=== PATIENT | female | born 1965 | race Caucasian/White ===

== ENCOUNTER 2016-10-12 15:56 | Observation (INO) ==
--- NOTE | 2016-10-12 16:11 | EKG Report ---
Stationary ECG Study [facility] ER Test Date: 10/12/2016 4:07:49 PM Pat Name: ROD DOSS Department: Room: Gender: F [employer] Tester: Migue Arroyo : 1965 Requested by: Tavo Walton Order Number: [id number] Reading MD: MICHAEL HILLS Intervals [place] Rate: 87 P: 79 MD: 152 QRS: 12 QRSD: 170 T: 151 QT: 408 QTc: 453 Interpretive Statements SINUS RHYTHM LEFT BUNDLE BRANCH BLOCK Electronically Signed On 10-12-16 20:20:58 CDT by MICHAEL HILLS [email or web address]
[2016-10-12] MEDS ORDERED: ASPIRIN 325 MG TABLET PO STA (16:19)
[2016-10-12] MEDS ORDERED: ENOXAPARIN 100 MG/ML SYRINGE SUBCUT STA (16:20)
--- NOTE | 2016-10-12 16:32 | Emergency Department Note ---
Michael Mares Brooke, am scribing for, and in the presence of, Wyatt Leigh MD 16:28 . Lu Mares James D, MD, personally performed the services described in this documentation, ascribed by Diann Rodriguez in my presence, and it is both accurate and complete [id number] . Arrival - Arrival Chief Complaint: Chest Pain Stated Complaint: chest pain ED Nursing Triage Note: Midsternal chest pain onset x 1 week - pt states that she was sent from Dr Thornton office for futher evaluation of chest pain - pt states that she has not been taking her plavix x 1 year Mode of Arrival: Ambulatory Limitations: No Limitations Source: Patient, RN Notes Reviewed Time Seen by Provider: 10/12/16 16:19 - History of Present Illness HPI Narrative: Patient is a 50 year old female who presents to the ED with c/o chest pain that has been ongoing for the past week. Patient says the pain has worsened with time. The pain is located in the center of her chest. She describes the pain as sharp. Patient says the pain is worsened with exertion. She also complains of having shortness of breath, diaphoresis, and nausea with the chest pain. She says she is not currently in pain and states "I feel alright." Patient had a IN in 2013 and had stents placed. She says today's chest pain is different than the pain she had with her previous IN. Patient says she never experienced chest pain and says she had "back pain and a panic attack." Patient says she does have blockages in both sides of her neck. She is a smoker and smokes about a pack of cigarettes a day. Onset (ago): week(s) (1) Date of Last Menstrual Period: hyster Allergies/Adverse Reactions: Allergies Allergy/AdvReac Type Severity Reaction Status Date / Time No Known Allergies Allergy Verified 04/01/16 21:27 Home Medications: Home Medications Medication Instructions Recorded Confirmed Type No Known Home Medications [No 10/12/16 10/12/16 History Known Home Medications] Review of System - Review of System 12 point system: reviewed and no additional remarkable complaints except as stated - Review of System Constitutional: Present: diaphoresis. Absent: fever Respiratory: Absent: respiratory distress Cardiovascular: Present: chest pain Gastrointestinal: Present: nausea Skin: Absent: rash Medical,Surgical,& Family Hx - Medical History Cardio: History of: IN Neurology: No history of: Seizures Gastrointestinal: History of: GI Problems (epigastric pain) - Surgical History Cardiac Surgeries: Sugical HX of: Cardiac Catheterization (3) Abdominal Surgeries: Patient denies: Cholecystectomy - Social History Smoking Status: Current every day smoker Have you smoked in the last 12 months: Yes Time spent discussing smoking cessation with patient: 3 to 10 minutes Frequency of Alcohol Use: Occasionally Type of Drug Use: None Functional capacity: independent ambulation Exam Vital Signs: Vital Signs Temperature 97.8 F 10/12/16 16:05 Pulse Rate 93 H 10/12/16 16:05 Respiratory Rate 20 10/12/16 16:05 Blood Pressure 194/102 10/12/16 16:05 O2 Sat by Pulse Oximetry 97 10/12/16 16:05 GENERAL: This is a well-nourished well-developed white female in no apparent distress. Smells of cigarettes. VITAL SIGNS: Reviewed HEENT: Head is atraumatic and normocephalic. Pupils are equal round react to light. Extraocular movements are intact. Oropharynx is benign with moist mucous membranes. Xanthelasma are present on the upper lids bilaterally. NECK: Neck is soft and supple without tenderness. There are no masses. There is no lymphadenopathy. LUNGS: Lungs are clear to auscultation. Chest rises symmetrically. There is no chest wall tenderness. CV: Heart is regular rate and rhythm without murmurs rubs or gallops. ABDOMEN: Abdomen is soft, nontender to palpation. There are no abdominal abnormal masses palpated. There is no organomegaly. Bowel sounds are present and active. SKIN: Skin is warm and dry. No rash. EXTREMITIES: Patient has full range of motion without tenderness. There is no pedal edema. NEUROLOGIC: Awake alert and oriented 4. Cranial nerves II through XII are grossly intact. Motor is 5 over 5 in all extremities bilaterally. Course - Consultations Consultation #1: Discussed with Dr. Thornton. Patient will be admitted to her service. Initial orders written for her. She will assume care of the patient upon her arrival to the [facility]. Time: 16:42 Results - Labs CBC & BMP: 10/12/16 16:24 10/12/16 16:24 Lab Results: I have reviewed the patients labs Labs: Laboratory Tests 10/12/16 16:24 INR 1.0 Laboratory Tests 10/12/16 16:24 Troponin I 0.018 - EKG EKG results: interpreted by ERMD - Impressions EKG: Normal sinus rhythm with a rate of 87, left bundle branch block, no further interpretation possible. Comparison to EKG of January 2014 is unchanged other than rate. - Diagnostic Findings Procedure: Chest x-ray: image reviewed by me (No infiltrates, no pleural effusions.) Disposition Clinical Impression: Chest pain, Coronary artery disease, Essential hypertension, Hyperlipidemia, Nicotine addiction, Left bundle branch block Case discussed with: patient Disposition: Still a Patient Condition: Stable Time of Disposition: 16:32
[2016-10-12] MEDS ORDERED: ENOXAPARIN 100 MG/ML SYRINGE SUBCUT ONE (16:33)
[2016-10-12] MEDS ORDERED: ASPIRIN 325 MG TABLET ONE (16:33)
[2016-10-12] MEDS ORDERED: METOPROLOL TARTRATE 5 MG/5 ML VIAL IV STA (16:36)
--- NOTE | 2016-10-12 16:36 | XRay Report ---
XR chest 2V Indication: Chest pain. Comparison: Chest x-ray 04/01/2016 Technique: PA and lateral chest x-ray was performed. Findings: The heart is borderline in size to minimally enlarged. Pulmonary vasculature demonstrates no specific abnormality. Hilar structures demonstrate fairly symmetric appearance. The lungs demonstrate linear to reticular interstitial markings in the lower chest that could reflect minimal interstitial edema. Overall appearance of the chest has changed little since comparison. Bones and soft tissues demonstrate no evidence of acute pathology. Impression: 1. Stable cardiomegaly. 2. Minimal interstitial edema is not excluded within the lung bases. 10/12/2016 4:32 PM PROCEDURE INTERPRETED AT [facility] Final Report Signed by: Dr. Rios Stafford
--- NOTE | 2016-10-12 16:38 | Family Practice History&Phys ---
Assessment and Plan (1) Chest pain Status: Acute Assessment and plan: and CAD, s/p stents x3,Cardiology consult, ASA, lovenox,metoprolol iv given in Er, on morphine, NTG prn,f/u troponins, EKG ( has LBBB) 2. HTN, uncontrolled, started on coreg in ER 3. Hyperlipidemia , will get lipid panel in AM, continue crestor, 4. COPD, stable , Current Visit: Yes (2) Coronary artery disease Status: Chronic Current Visit: Yes (3) Essential hypertension Status: Chronic Current Visit: Yes (4) Hyperlipidemia Status: Chronic Current Visit: Yes (5) COPD (chronic obstructive pulmonary disease) Status: Chronic Current Visit: Yes (6) Nicotine dependence, cigarettes, uncomplicated Status: Chronic Current Visit: Yes (7) Noncompliance with medication regimen Status: Chronic Current Visit: Yes (8) Obesity (BMI 30-39.9) Status: Chronic Current Visit: Yes History of Present Illness Chief complaint: chest pain History of present illness: Ms. Oliver is a 50 year old female pt came for chest pain initially to me at clinic, was sent to Er for further evaluation, Chest pain since 1 week, 8/10 intensity , has heaviness lasts for 10 min average , has palpitations , last episode 2 pm , with nausea , sweating,SOB, has leg swelling and on and off tiredness, no h/o chest trauma, last ASA taken 325 mg in ER,improved chest pain, h/o RI in 2012, has [address] , last seen , 2 years ago, not on meds since 1 year,( last seen > 2 yr ago), is non compliant, also c/o chronic constipation,, has h/o HTN, CAD,hyperlipidemia,COPD, smokes 1.5 PPD, clinic chart reviewed , pt was on spiranolactone, lisinopril, asprin , plavix, coreg ,lipitor, ventolin HFA, did not take meds > 1 yr , except asprin Home Medications Medication Instructions Recorded Confirmed Type No Known Home Medications [No 10/12/16 10/12/16 History Known Home Medications] Allergies Allergy/AdvReac Type Severity Reaction Status Date / Time No Known Allergies Allergy Verified 04/01/16 21:27 Medical,Surgical,& Family Hx - Medical History Cardio: History of: RI Neurology: No history of: Seizures Gastrointestinal: History of: GI Problems (epigastric pain) - Surgical History Cardiac Surgeries: Sugical HX of: Cardiac Catheterization (3) Abdominal Surgeries: Patient denies: Cholecystectomy - Social History Smoking Status: Current every day smoker Frequency of Alcohol Use: Occasionally Type of Drug Use: None Exam - Constitutional Vitals: Period Temp Pulse Resp BP Sys/Solorio Pulse Ox Last 24 Hr 97.8 F 93 20 194/102 97 General appearance: no acute distress Exam: Pt seen and examined in the ER, obese female pt, lying in bed smells of cigarette smoke, - Head Head exam: Present: normal inspection, normocephalic, atraumatic - Eye Eye exam: Present: EOMI, other (with BL xanthalesma at upper eyelids,) Pupils: Present: JYOTI - ENT ENT exam: Present: normal exam - Neck Neck exam: Present: normal inspection - Respiratory Respiratory exam: Present: clear to auscultation bilaterally (except mild crackles at bl lung bases) - Cardiovascular Cardiovascular exam: Present: regular rate and rhythm (chest pain not present at the time of exam ,and is not reproducible,) - GI/Abdominal GI/Abdominal exam: Present: normal bowel sounds - Extremities Exam Extremities exam: Present: edema (1+ BL pitting pedal edema) - Neurological Exam Neurological exam: Present: alert (strength WNL ), oriented X3 Results - Labs CBC & BMP: 10/12/16 16:24 10/12/16 16:24 Lab Results: I have reviewed the past 24 hour labs - EKG EKG results: interpreted by ERMD - Impressions chest xray , stable cardiomegaly , mild interstitial edema , base of lungs
[2016-10-12 16:39] LABS: Basophils % 0.4 % (0.0-0.8); Eosinophils % 0.4 % (0.00-10.9); Hematocrit 45.2 VOL% (35.7-47.0); Hemoglobin 15.3 GM/DL (12.0-16.0); Immature Granulocytes % 0.4 %; Immature Granulocytes Absolute 0.02 #; Lymphocytes # 1.6 10*3/uL (1.4-4.0); Lymphocytes % 30.5 % (21.3-54.2); Mean Corpuscular HGB Conc 33.8 GM/DL (32-36); Mean Corpuscular Hemoglobin 31 PG (27-34); Mean Corpuscular Volume 92.8 FL (87-102); Mean Platelet Volume 12.2 FL (9.6-12.0); Monocytes # 0.4 10*3/uL (0.11-0.8); Monocytes % 7.9 % (1.7-12.7); Neutrophils # 3.1 10*3/uL (1.4-7.4); Neutrophils % 60.4 % (38.7-73.9); Platelet Count 152 T/CUMM (130-400); Red Blood Count 4.87 MC/CUMM (3.8-5.5); Red Cell Distribution Width 14.4 % (9.3-17.3); White Blood Count 5.2 T/CUMM (4-12)
[2016-10-12 16:54] LABS: PT Patient Result 10.3 SECS; Partial Thromboplastin Time 28.6 SECS (0-40)
[2016-10-12 16:58] LABS: Alanine Aminotransferase 27 U/L (13-56); Albumin 3.9 G/DL (3.4-5.0); Alkaline Phosphatase 59 U/L (45-117); Aspartate Amino Transferase 22 U/L (0-37); Bilirubin,Total < 0.39 MG/DL (0.2-1.0); Calcium 8.7 MG/DL (8.5-10.1); Total Protein 7.2 G/DL (6.4-8.3)
[2016-10-12 16:59] LABS: Blood Urea Nitrogen 18 MG/DL (7-18); Glucose 85 MG/DL (74-106); Osmolality,Calculated 279.4 MOS/KG (273-304); Potassium 4.5 MMOL/L (3.5-5.1); Sodium 140 MMOL/L (136-145)
[2016-10-12] MEDS ORDERED: METOPROLOL TARTRATE 5 MG/5 ML VIAL IV ONE (17:02)
[2016-10-12] MEDS ORDERED: SODIUM CHLORIDE 0.9% 1,000 ML IV SCH (18:28)
[2016-10-12] MEDS ORDERED: ACETAMINOPHEN 325 MG TABLET PO PRN (18:28)
[2016-10-12] MEDS ORDERED: NITROGLYCERIN SL 0.4 MG TABLET SL STA (18:28)
[2016-10-12] MEDS ORDERED: ONDANSETRON 4 MG/2 ML VIAL IV PRN (18:28)
[2016-10-12] MEDS ORDERED: MORPHINE 2 MG/1 ML SYRINGE IV PRN (18:28)
[2016-10-12] MEDS: NITROGLYCERIN 2% OINT 1 INCH/GM PACK TOP SCH (19:07)
[2016-10-12] MEDS: DOCUSATE SODIUM 100 MG CAPSULE PO SCH (20:35)
[2016-10-12] MEDS: CARVEDILOL 25 MG TABLET PO SCH (20:35)
[2016-10-12] MEDS ORDERED: ROSUVASTATIN 20 MG TABLET PO SCH (21:00)
[2016-10-13] MEDS: NITROGLYCERIN 2% OINT 1 INCH/GM PACK TOP SCH ×3 (00:45→14:22)
[2016-10-13] MEDS ORDERED: ENOXAPARIN 100 MG/ML SYRINGE SUBCUT SCH (06:00)
[2016-10-13] MEDS: CARVEDILOL 25 MG TABLET PO SCH (08:15)
[2016-10-13] MEDS: DOCUSATE SODIUM 100 MG CAPSULE PO SCH (08:15)
[2016-10-13 08:29] LABS: Risk Ratio 6.46; VLDL CHOLESTEROL 32.2 MG/DL
[2016-10-13 08:40] LABS: Free T4 (Free Thyroxine) 0.65 NG/DL (0.76-1.46); Thyroid Stimulating Hormone 0.913 uIU/ml (0.358-3.74)
--- NOTE | 2016-10-13 08:45 | Family Practice Progress Note ---
Family Practice - PN: Subj Interval history: Patient seen and examined at the telemetry bed, accompanied by her daughter at the bedside. cardiology nurse practitioner present at the bedside examining the patient Patient had last episode of chest pain yesterday, was placed on a nitroglycerin patch, taken out this morning, was having headaches. Mentions her chest pain lasts from 1-2 minutes, Patient refused nicotine patch, she went down to smoke cigarette this a.m. No shortness of breath, ambulating well. Exam (Progress Note) - Constitutional Vitals: Period Temp Pulse Resp BP Sys/Solorio Pulse Ox Last 24 Hr 96.9 F-97.9 F 53-93 12-21 107-194/50-102 93-98 Exam: GENERAL APPEARANCE: alert and oriented, pleasant, in no acute distress, sitting at the side of the bed, smells of cigarette smoke EYES: extraocular movement intact (EOMI), conjunctiva clear, normal. Bilateral xanthelasmas. NECK/THYROID: neck supple, full range of motion, no cervical lymphadenopathy, no thyromegaly. HEART: regular rate and rhythm, no murmurs, rubs, gallops. LUNGS: clear to auscultation bilaterally, no wheezes, rales, rhonchi. ABDOMEN: soft, nontender, nondistended, no organomegaly , bowel sounds present. EXTREMITIES: no edema. NEUROLOGIC: alert and oriented, cranial nerves 2-12 grossly intact, gait normal, Results - Labs CBC & BMP: 10/12/16 16:24 10/12/16 16:24 Lab Results: I have reviewed the past 24 hour labs Labs: Lipid panel, thyroid profile labs reviewed Assessment and Plan (1) Chest pain Status: Acute Assessment and plan: and CAD, s/p stents x3,Cardiology consult this AM , will continue recommendations as per rehabilitation aide/scheduler 2. HTN, improved, stable on antihypertensives 3. Hyperlipidemia , continue crestor, 4. COPD, stable , 5. Advised patient not to go down and smoke cigarettes, advised to take nicotine patch. 6. advised to take meds compliantly, Current Visit: Yes (2) Coronary artery disease Status: Chronic Current Visit: Yes (3) Essential hypertension Status: Chronic Current Visit: Yes (4) Hyperlipidemia Status: Chronic Current Visit: Yes (5) COPD (chronic obstructive pulmonary disease) Status: Chronic Current Visit: Yes (6) Nicotine dependence, cigarettes, uncomplicated Status: Chronic Current Visit: Yes (7) Noncompliance with medication regimen Status: Chronic Current Visit: Yes (8) Obesity (BMI 30-39.9) Status: Chronic Current Visit: Yes
--- NOTE | 2016-10-13 08:57 | Cardiology Consult Note ---
Assessment and Plan - Time spent with patient Time spent with patient: Greater than 30 minutes (1) Chest pain Status: Acute Assessment and plan: SEE PLAN OF CARE LISTED BELOW. Current Visit: Yes (2) Left bundle branch block Status: Chronic Assessment and plan: SEE PLAN OF CARE LISTED BELOW. Current Visit: Yes (3) COPD (chronic obstructive pulmonary disease) Status: Chronic Assessment and plan: SEE PLAN OF CARE LISTED BELOW. Current Visit: Yes (4) Coronary artery disease Status: Chronic Assessment and plan: SEE PLAN OF CARE LISTED BELOW. Current Visit: Yes (5) Essential hypertension Status: Chronic Assessment and plan: SEE PLAN OF CARE LISTED BELOW. Current Visit: Yes (6) Hyperlipidemia Status: Chronic Current Visit: Yes (7) Noncompliance with medication regimen Status: Chronic Assessment and plan: SEE PLAN OF CARE LISTED BELOW. Current Visit: Yes (8) Obesity (BMI 30-39.9) Status: Chronic Assessment and plan: SEE PLAN OF CARE LISTED BELOW. Current Visit: Yes (9) Congestive heart failure Status: Acute Current Visit: Yes Qualifiers: Congestive heart failure type: systolic Congestive heart failure chronicity : acute on chronic Qualified Code(s): I50.23 - Acute on chronic systolic ( congestive) heart failure (10) History of ischemic cardiomyopathy Status: Chronic Assessment and plan: SEE PLAN OF CARE LISTED BELOW. Current Visit: Yes (11) History of WI (myocardial infarction) Status: Chronic Assessment and plan: SEE PLAN OF CARE LISTED BELOW. Current Visit: Yes (12) Tobacco abuse Status: Chronic Assessment and plan: SEE PLAN OF CARE LISTED BELOW. 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 Win Rodriguez remote past PCP: Dr. Thornton Ms. Oliver is a 50 year old female with known history of coronary artery disease , followed by Dr. Win Rodriguez in the remote past. Patient has cardiac risk factors significant for known CAD (W[place] in 2012), obesity, current everyday smoker (smokes a pack and a half a day), dyslipidemia, hypertension, family history of CAD (father WI, mother sudden ). Patient has past medical history of COPD, carotid artery disease and medical noncompliance. Patient reports that she has lost her medical insurance. She has not taken any medications for 1.5 years. Patient has history of myocardial infarction in 2013 with coronary stents. She received PCI to first obtuse marginal branch with drug-eluting stent. Ejection fraction at that time was noted to be 40%. She also had non-ST elevation WI in 2011. She received successful PCI to left circumflex and obtuse marginal branch. Most recent echocardiogram was performed in 2012. At that time, she had moderately decreased LV systolic function. Ejection fraction estimated at 35-40%. Mild MR. Mild to moderate TR. Patient was last seen in the cardiology clinic [place] [address] Win Rodriguez. Patient was seen by her PCP Dr. Norberto castro yesterday. Patient was subsequently transported to the emergency department to be further evaluated. She describes intermittent chest pain for the past several months. This is a midsternal chest pain that she describes as a sharp/tightening pain. This occurs intermittently, most often with exertion. She denies radiation. Associated with shortness of breath, diaphoresis and nausea. Last anywhere between 5 minutes to 20 minutes. She reports that it usually resolved after taking BC powder. Usually improves with rest. This usually occurs daily. This has greatly progressed over the last 1 week. She was seen by her PCP yesterday. She was encouraged to present to the emergency department to be further evaluated. In the past she was on dual antiplatelet therapy with Plavix and aspirin. She has not been taking either of these medications for the past year and a half. She has also been off of her cholesterol medication. Lipid panel this hospitalization severely abnormal. LDL 216. High intensity statin has been reinitiated. Upon arrival to the emergency department, she was noted to be chest pain-free. She has been admitted under Dr. Thornton's service. Housed on the telemetry unit. Cardiology has been consulted to further evaluate her chest discomfort. Of note, patient also confirms cough and night sweats for the past several months. She has had a "chest cold that she cannot shake." She does report that her chest pain is worsened with cough and deep breathing. Upon examination , her chest pain is reproducible. When asked how her symptomology compares to her last myocardial infarction. She reports that it is completely different. She never experienced chest pain, heaviness or tightness with her last MRI. She reports only experiencing back pain and shortness of breath. She does confirm worsening dyspnea on exertion and change in her exercise tolerance. She does have chronic dyspnea with her COPD. However, she reports that this has progressively worsened. She has to take multiple rest breaks while walking only short distances. Confirms orthopnea and lower extremity swelling. Patient was seen and examined on the telemetry unit. She is currently without complaints of chest pain, heaviness and tightness. EKG reveals chronic left bundle branch block. Cardiac biomarkers have been negative 3. Upon examination, patient's chest pain is reproducible to light palpation. I will add Toradol for treatment of her chest wall pain. However, patient does have several risk factors for coronary artery disease. I will continue to cycle cardiac biomarkers and EKGs. I will further discuss with Dr. Rausch regarding the need for further cardiac workup, invasive versus noninvasive. Patient is noncompliant due to inadequate findings. This may inhibit heart catheterization due to unable to afford dual antiplatelet therapy. I will further discuss with Dr. Rausch and await his additional recommendations. ASSESSMENT/PLAN: 1. CHEST PAIN - She is currently without complaints of chest pain, heaviness and tightness. EKG reveals chronic left bundle branch block. Cardiac biomarkers have been negative 3. Upon examination, patient's chest pain is reproducible to light palpation. I will add Toradol for treatment of her chest wall pain. However, patient does have several risk factors for coronary artery disease. After discussing with Dr. Rausch, we will proceed with cardiac stress testing today to rule out progression of her underlying coronary artery disease. Echocardiogram pending. Continue aspirin, beta blockade, nitrates and DIO inhibitor. I will further discuss with Dr. Rausch and await his additional recommendations. 2. HISTORY OF CAD, STATUS POST NON-ST ELEVATION WI 2 - Continue aspirin, beta blockade and DIO inhibitor. 3. HISTORY OF HYPERTENSION - DIO inhibitor has been initiated for better treatment of her ischemic cardiomyopathy. Will monitor blood pressure and adjust medications accordingly. 4. HISTORY OF COPD - Management per attending. 5. HISTORY OF HYPERLIPIDEMIA - Lipid panel has been reviewed. LDL 216. High intensity statin has been reinitiated. Patient will need repeat lipid panel in 4-6 weeks. 6. MEDICATION NONCOMPLIANCE DUE TO INADEQUATE FUNDS WITHOUT INSURANCE - 7. HISTORY OF ISCHEMIC CARDIOMYOPATHY - most recent ejection fraction from echocardiogram 2012 revealed moderately decreased LV systolic function, ejection fraction 35-40%. Will repeat echocardiogram this hospitalization. Continue beta-blockade. Will initiate DIO inhibitor. Increase this as her bMood pressure will tolerate. 8. MILD ACUTE ON CHRONIC CHF, SYSTOLIC DYSFUNCTION - Chest x-ray revealed some mild decompensation of heart failure. I will add Lasix. Monitor daily weights and strict I's and O's. 9. CHRONIC LBBB - This is chronic. Will monitor with EKG's. 10.TOBACCO ABUSE - Smoking cessation encouraged. 11.OBESITY, BMI 36.1 - Weight loss encouraged the exercise and dietary restriction. CC: Jayesh Thornton MD - Home Medications and Allergies Home Medications: Home Medications Medication Instructions Recorded Confirmed Type No Known Home Medications [No 10/12/16 10/12/16 History Known Home Medications] Allergies/Adverse Reactions: Allergies Allergy/AdvReac Type Severity Reaction Status Date / Time No Known Allergies Allergy Verified 04/01/16 21:27 - Constitutional Constitutional: Present: as per HPI, chills, excessive sweating, fatigue, lethargy, weakness, weight gain. Absent: fever(s) - EENT Nose, mouth and throat: Present: as per HPI, nasal congestion - Cardiovascular Cardiovascular: Present: as per HPI, chest pain with activity, diaphoresis, dyspnea, dyspnea on exertion, edema, lightheadedness, orthopnea, PND. Absent: radiating jaw, neck or arm pain, palpitations - Respiratory Respiratory: Present: as per HPI, cough, dyspnea, dyspnea on exertion, pain on inspiration - Gastrointestinal Gastrointestinal: Present: as per HPI, nausea. Absent: abdominal pain, coffee ground emesis, hematemesis, hematochezia, loose stools, vomiting - Neurological Neurological: Present: as per HPI, dizziness. Absent: abnormal gait, abnormal speech, behavioral changes, syncope Medical,Surgical,& Family Hx - Medical History Cardio: History of: CHF, CAD, [place] Endocrine: History of: Dyslipidemia Respiratory: History of: COPD Gastrointestinal: History of: GERD, GI Problems (epigastric pain) - Surgical History Cardiac Surgeries: Sugical HX of: Cardiac Catheterization (3) Abdominal Surgeries: Patient denies: Cholecystectomy Reproductive Surgeries: Surgical HX of;: Gynecologic Surgery, Hysterectomy - Family History Family History: Reports;: Family Heart Disease - Social History Smoking Status: Current every day smoker Frequency of Alcohol Use: Occasionally Type of Drug Use: None Marital Status: Single Lives With:: Alone Functional capacity: independent ambulation Physical Examination Vital Signs Temp Pulse Resp BP Pulse Ox 97.8 F 93 H 20 194/102 97 10/12/16 16:05 10/12/16 16:05 10/12/16 16:05 10/12/16 16:05 10/12/16 16:05 General: Present: Appears Well, No Apparent Distress Neck: Present: Supple Neck, Midline Trachea, No JVD/HJR, No Masses Cardiac: Present: Reg Rate and Rhythm, Regular Rate, Regular Rhythm, S1/S2 Lungs: Present: Oxygen, Other (Decreased breath sounds) Abdomen: Present: Soft, Active Bowel Sounds, Non-Tender Skin: Present: Clear. Absent: Rash, Suspicious Lesions Gait: Present: Normal Gait Extremities: Present: Normal Gait, No Clubbing, No Cyanosis, No Edema, Normal Upper Extr. Pulses, Normal Lower Extr. Pulses Result/EKG - Labs CBC & BMP: 10/12/16 16:24 10/12/16 16:24 Lab Results: I have reviewed the past 24 hour labs Labs: Laboratory Results - last 24 hr 10/12/16 10/12/16 10/12/16 16:24 16:24 16:24 WBC 5.2 RBC 4.87 Hgb 15.3 Hct 45.2 MCV 92.8 MCH 31 MCHC 33.8 RDW 14.4 Plt Count 152 MPV 12.2 H Neut % (Auto) 60.4 Lymph % (Auto) 30.5 [place] % (Auto) 7.9 Eos % (Auto) 0.4 Baso % (Auto) 0.4 Neut # (Auto) 3.1 Lymph # (Auto) 1.6 [place] # (Auto) 0.4 Eos # (Auto) 0.0 Baso # (Auto) 0.0 Immature Gran % 0.4 Nucleated RBC % 0.0 Immature Gran # 0.02 Nucleated RBCs # 0.00 Immature Plt Fraction 0.0 INR 1.0 PT Patient/Control Mix 10.3 Circ Anticoag PTT 28.6 Sodium 140 Potassium 4.5 Chloride 108 H Carbon Dioxide 26 Anion Gap 10.5 BUN 18 Creatinine 1.00 GFR Calculation 76 BUN/Creatinine Ratio 18.00 Glucose 85 Calculated Osmolality 279.4 Calcium 8.7 Total Bilirubin < 0.39 AST 22 ALT 27 Alkaline Phosphatase 59 Troponin I B-Natriuretic Peptide Total Protein 7.2 Albumin 3.9 Globulin 3.3 Albumin/Globulin Ratio 1.1 Triglycerides Cholesterol LDL Cholesterol VLDL Cholesterol HDL Cholesterol Heart Disease Risk Ratio Free T4 TSH 3rd Generation 10/12/16 10/12/16 10/12/16 16:24 16:24 19:49 WBC RBC Hgb Hct MCV MCH MCHC RDW Plt Count MPV Neut % (Auto) Lymph % (Auto) [place] % (Auto) Eos % (Auto) Baso % (Auto) Neut # (Auto) Lymph # (Auto) [place] # (Auto) Eos # (Auto) Baso # (Auto) Immature Gran % Nucleated RBC % Immature Gran # Nucleated RBCs # Immature Plt Fraction INR PT Patient/Control Mix Circ Anticoag PTT Sodium Potassium Chloride Carbon Dioxide Anion Gap BUN Creatinine GFR Calculation BUN/Creatinine Ratio Glucose Calculated Osmolality Calcium Total Bilirubin AST ALT Alkaline Phosphatase Troponin I 0.018 0.027 B-Natriuretic Peptide 151 H Total Protein Albumin Globulin Albumin/Globulin Ratio Triglycerides Cholesterol LDL Cholesterol VLDL Cholesterol HDL Cholesterol Heart Disease Risk Ratio Free T4 TSH 3rd Generation 10/12/16 10/13/16 10/13/16 22:28 07:13 07:13 WBC RBC Hgb Hct MCV MCH MCHC RDW Plt Count MPV Neut % (Auto) Lymph % (Auto) [place] % (Auto) Eos % (Auto) Baso % (Auto) Neut # (Auto) Lymph # (Auto) [place] # (Auto) Eos # (Auto) Baso # (Auto) Immature Gran % Nucleated RBC % Immature Gran # Nucleated RBCs # Immature Plt Fraction INR PT Patient/Control Mix Circ Anticoag PTT Sodium Potassium Chloride Carbon Dioxide Anion Gap BUN Creatinine GFR Calculation BUN/Creatinine Ratio Glucose Calculated Osmolality Calcium Total Bilirubin AST ALT Alkaline Phosphatase Troponin I 0.027 B-Natriuretic Peptide Total Protein Albumin Globulin Albumin/Globulin Ratio Triglycerides 161 H Cholesterol 323 H LDL Cholesterol 216.0 VLDL Cholesterol 32.2 HDL Cholesterol 50 Heart Disease Risk Ratio 6.46 Free T4 0.65 L TSH 3rd Generation 0.913 - EKG EKG results: interpreted by me (Chronic left bundle branch block)
[2016-10-13] MEDS ORDERED: PANTOPRAZOLE 40 MG TABLET PO SCH (09:00)
[2016-10-13] MEDS ORDERED: ASPIRIN EC 325 MG TABLET PO SCH ×2 (09:00→12:56)
[2016-10-13] MEDS ORDERED: NICOTINE 14 MG/24 HR PATCH TRANSDERM SCH (09:00)
[2016-10-13] MEDS ORDERED: FUROSEMIDE 40 MG/4 ML VIAL IV SCH (09:30)
[2016-10-13] MEDS ORDERED: LISINOPRIL 5 MG TABLET PO SCH (09:30)
[2016-10-13] MEDS ORDERED: KETOROLAC 30 MG/1 ML VIAL IV PRN (09:33)
[2016-10-13] MEDS ORDERED: ALBUTEROL 2.5 MG/3 ML NEB RESP TX PRN (10:45)
--- NOTE | 2016-10-13 11:16 | Event Note ---
Patient underwent cardiac stress test. Lexiscan protocol used due to chronic left BBB. Nondiagnostic. Patient tolerated well without any chest pain, heaviness or tightness. Did experience mild SOB and dizziness. PVC noted. Patient now onto final nuclear scan. Dr. Rausch to read, interpret and advise.
[2016-10-13] MEDS ORDERED: REGADENOSON 0.4 MG/5 ML SYRINGE IV ONE (11:40)
[2016-10-13 12:48] VITALS: BP 136/82
[2016-10-13] MEDS ORDERED: CARVEDILOL 6.25 MG TABLET PO SCH (12:56)
--- NOTE | 2016-10-13 15:14 | Nuclear Medicine Report ---
PHARMACOLOGICAL STRESS TEST The test is interpreted and dictated by Dr. Tom Rausch. INDICATION: Chest pain, history of ischemic cardiomyopathy. PROCEDURE: At rest, 10 mCi of Technetium-99 labeled Sestamibi was injected and rest images were obtained. 0.4 mg Lexiscan was injected IV. Then, 30 mCi of Technetium-99 labeled Sestamibi was injected and post stress images were obtained. FINDINGS: At rest, sinus rhythm, 64 beats per minute, left bundle branch block , blood pressure 152/81 mmHg. Post Lexiscan injection, the heart rate armin to 93 beats per minute, sinus rhythm, blood pressure 142/82 mmHg. Left bundle branch block, without new changes compared to baseline. The peak heart rate was 66% of predicted, age-appropriate heart rate. Rest and post pharmacological stress gated and perfusion images were reviewed. There is a small amount of motion artifacts at the rest images. The end-diastolic volume is 260 cc, the end-systolic volume is 151 cc, the calculated left ventricular ejection fraction is 36%. There is moderate global hypokinesis. Perfusion images show a moderate size area in the anteroseptal region of severely decreased activity at rest, which becomes moderately photopenic post stress. There is also an area of severely decreased activity at the apex, becomes moderately photopenic post stress. These are suggestive of old myocardial disease, without ischemia. CONCLUSION: 1. CLINICALLY NEGATIVE LEXISCAN PHARMACOLOGIC STRESS TEST. LEFT BUNDLE BRANCH BLOCK. 2. DILATED LEFT VENTRICLE, WITH MODERATELY DECREASED SYSTOLIC FUNCTION. OLD MYOCARDIAL DISEASE, WITHOUT ISCHEMIA. 3. THIS TEST IS MODERATE TO HIGH RISK FOR FUTURE CARDIOVASCULAR EVENTS. Procedure performed and interpreted at [facility] Department of Radiology. [facility]
--- NOTE | 2016-10-13 15:59 | Discharge Summary ---
Hospital Course - Hospital Course Hospital Course: Patient admitted for chest pain since 1 week, found to have LBBB, possibly chronic. Also found to have high blood pressure readings at the time of admission. Received aspirin,, nitroglycerin, Improved her chest pain, anti-hypertensives were started. Cardiology was consulted, oral meds restarted, were adjusted, Lexiscan was done which was nondiagnostic, (History of moderate ischemic cardiomyopathy, ejection fraction was around 40% , status post prior PCI's. h/o [place] in 2012, has [address] , last seen , 2 years ago, not on meds since 1 year, due to finances ( last seen > 2 yr ago), is non compliant, has h/o HTN, CAD,hyperlipidemia,COPD,) smokes 1.5 PPD. Patient was stable during the hospital stay, hypertension, improved. 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 Diagnosis - Discharge Diagnosis (1) Chest pain Status: Acute (2) Coronary artery disease Status: Chronic (3) Essential hypertension Status: Chronic (4) Hyperlipidemia Status: Chronic (5) COPD (chronic obstructive pulmonary disease) Status: Chronic (6) Nicotine dependence, cigarettes, uncomplicated Status: Chronic (7) Noncompliance with medication regimen Status: Chronic (8) Obesity (BMI 30-39.9) Status: Chronic Specialty Discharge - Follow Up or Referrals Follow up with: Win Rodriguez MD [Physician] - 2 Weeks (pt has seen >1.5 yr ago) Jayesh Thornton MD [Physician] - 1 Week (with mg ZAK,) Discharge Plan - Discharge Data Disposition: Disch To Home/Self Care Condition at Discharge: Stable Discharge Diet: low fat, low cholesterol, low salt diet Activity: resume usual activities as tolerated Contact your physician if you experience:: Shortness of breath - Discharge Medications New Aspirin EC Tab 81 mg PO DAILY tablet Carvedilol [Coreg] 6.25 mg PO BID #60 tablet Docusate Sodium Cap [Colace Cap] 100 mg PO BID capsule Lisinopril [Prinivil] 5 mg PO DAILY #30 tablet Nicotine 14 mg/24 Hr Patch [Nicoderm CQ 14 mg/24 hr Patch] 1 patch TRANSDERM DAILY #14 patch Simvastatin [Zocor] 40 mg PO BEDTIME #30 tablet Furosemide Tab [Lasix Tab] 10 mg PO DAILY #30 tablet Nitroglycerin [Nitroglycerin SL Tab] 0.4 mg SL Q5M PRN #30 tablet PRN Reason: Chest Pain Morphine Inj 2 mg IV Q4H PRN syringe PRN Reason: Pain Severe (8-10) - Follow Up or Referral Follow Up: Win Rodriguez MD [Physician] - 2 Weeks (pt has seen >1.5 yr ago) Jayesh Thornton MD [Physician] - 1 Week (with BMP, mg,) - Forms/Instructions Instructions: How to Stop Smoking (DC), Chest Wall Pain (GEN) Exam - Constitutional Vitals: Period Temp Pulse Resp BP Sys/Solorio Pulse Ox Last 24 Hr 96.9 F-97.9 F 53-93 12-21 107-194/50-102 93-98 Exam: GENERAL APPEARANCE: alert and oriented, pleasant, in no acute distress, sitting at the side of the bed, smells of cigarette smoke EYES: extraocular movement intact (EOMI), conjunctiva clear, normal. Bilateral xanthelasmas. NECK/THYROID: neck supple, full range of motion, no cervical lymphadenopathy, no thyromegaly. HEART: regular rate and rhythm, no murmurs, rubs, gallops. LUNGS: clear to auscultation bilaterally, no wheezes, rales, rhonchi. ABDOMEN: soft, nontender, nondistended, no organomegaly , bowel sounds present. EXTREMITIES: no edema. NEUROLOGIC: alert and oriented, cranial nerves 2-12 grossly intact, gait normal, Discharge Results Procedures and tests throughout hospitalization: Pending Orders 10/14/16 04:00 BMP w/ Mg [Basic Metabolic Panel w/Mg] IN AM CBC [Comp Blood Count Auto Diff] IN AM 10/15/16 04:00 BMP w/ Mg [Basic Metabolic Panel w/Mg] IN AM CBC [Comp Blood Count Auto Diff] IN AM 10/16/16 04:00 BMP w/ Mg [Basic Metabolic Panel w/Mg] IN AM CBC [Comp Blood Count Auto Diff] IN AM Labs on day of discharge: Labs from last 24 hours 10/13/16 10/13/16 10/12/16 07:13 07:13 22:28 WBC RBC Hgb Hct MCV MCH MCHC RDW Plt Count MPV Neut % (Auto) Lymph % (Auto) [place] % (Auto) Eos % (Auto) Baso % (Auto) Neut # (Auto) Lymph # (Auto) [place] # (Auto) Eos # (Auto) Baso # (Auto) Immature Gran % Nucleated RBC % Immature Gran # Nucleated RBCs # Immature Plt Fraction INR PT Patient/Control Mix Circ Anticoag PTT Sodium Potassium Chloride Carbon Dioxide Anion Gap BUN Creatinine GFR Calculation BUN/Creatinine Ratio Glucose Calculated Osmolality Calcium Total Bilirubin AST ALT Alkaline Phosphatase Troponin I 0.027 B-Natriuretic Peptide Total Protein Albumin Globulin Albumin/Globulin Ratio Triglycerides 161 H Cholesterol 323 H LDL Cholesterol 216.0 VLDL Cholesterol 32.2 HDL Cholesterol 50 Heart Disease Risk Ratio 6.46 Free T4 0.65 L TSH 3rd Generation 0.913 10/12/16 10/12/16 10/12/16 19:49 16:24 16:24 WBC RBC Hgb Hct MCV MCH MCHC RDW Plt Count MPV Neut % (Auto) Lymph % (Auto) [place] % (Auto) Eos % (Auto) Baso % (Auto) Neut # (Auto) Lymph # (Auto) [place] # (Auto) Eos # (Auto) Baso # (Auto) Immature Gran % Nucleated RBC % Immature Gran # Nucleated RBCs # Immature Plt Fraction INR PT Patient/Control Mix Circ Anticoag PTT Sodium Potassium Chloride Carbon Dioxide Anion Gap BUN Creatinine GFR Calculation BUN/Creatinine Ratio Glucose Calculated Osmolality Calcium Total Bilirubin AST ALT Alkaline Phosphatase Troponin I 0.027 0.018 B-Natriuretic Peptide 151 H Total Protein Albumin Globulin Albumin/Globulin Ratio Triglycerides Cholesterol LDL Cholesterol VLDL Cholesterol HDL Cholesterol Heart Disease Risk Ratio Free T4 TSH 3rd Generation 10/12/16 10/12/16 10/12/16 16:24 16:24 16:24 WBC 5.2 RBC 4.87 Hgb 15.3 Hct 45.2 MCV 92.8 MCH 31 MCHC 33.8 RDW 14.4 Plt Count 152 MPV 12.2 H Neut % (Auto) 60.4 Lymph % (Auto) 30.5 [place] % (Auto) 7.9 Eos % (Auto) 0.4 Baso % (Auto) 0.4 Neut # (Auto) 3.1 Lymph # (Auto) 1.6 [place] # (Auto) 0.4 Eos # (Auto) 0.0 Baso # (Auto) 0.0 Immature Gran % 0.4 Nucleated RBC % 0.0 Immature Gran # 0.02 Nucleated RBCs # 0.00 Immature Plt Fraction 0.0 INR 1.0 PT Patient/Control Mix 10.3 Circ Anticoag PTT 28.6 Sodium 140 Potassium 4.5 Chloride 108 H Carbon Dioxide 26 Anion Gap 10.5 BUN 18 Creatinine 1.00 GFR Calculation 76 BUN/Creatinine Ratio 18.00 Glucose 85 Calculated Osmolality 279.4 Calcium 8.7 Total Bilirubin < 0.39 AST 22 ALT 27 Alkaline Phosphatase 59 Troponin I B-Natriuretic Peptide Total Protein 7.2 Albumin 3.9 Globulin 3.3 Albumin/Globulin Ratio 1.1 Triglycerides Cholesterol LDL Cholesterol VLDL Cholesterol HDL Cholesterol Heart Disease Risk Ratio Free T4 TSH 3rd Generation DS: Provider Date of admission: 10/12/16 16:37 Primary care physician: . No PCP Attending physician on admission: Jayesh Thornton MD Consults: 10/12/16 16:58 Consult to Physician [CONS] Routine Comment: Consulting Provider: eLnin Purvis 10/12/16 18:28 Consult to Case Mgmt/Social Srvs [CONS] Routine Reason for Case Mgmt/Social Srvs: Discharge Planning Consult to Physician [CONS] Routine Comment: chest pain, CAD Consulting Provider: Tom Rausch Person Notified: Bassem Date Notified: 10/13/16 Time Notified: 07:45 Discharging clinician: Jayesh Thornton MD
--- NOTE | 2016-10-13 19:19 | ECHO Report ---
Sparkle Oliver 10/13/2016 Exam Date: 13:29 Referring Physician: Chen Manzanares Technologist: KYLAH Age: 50 Ht (in): 64 Wt (lb): 210 FExam Location: [facility] Gender: Echo [id number]: Chest pain, unspecified, Left bundleIndications:branch block, unspecified, COPD, CAD with previous stents, Essential (primary) hypertension, Acute on chronic systolic (congestive) heart failure, Ischemic cardiomyopathy, Nicotine dependence, cigarettes, uncomplicated, hx [place] BP: 136 / 67 HR: 60 SinusRhythm: Technically difficult studyTechnical Quality: IMPRESSIONS Mildly dilated left ventricle, with mild concentric hypertrophy. Mild global hypokinesis, estimated left ventricular ejection fraction 45%. Abnormal septal motion due to IVCD. Grade 2 diastolic dysfunction. Mild left atrial enlargement. Mild mitral regurgitation. MEASUREMENTS (Male / Female) Normal Values 2D ECHO LV Diastolic Diameter PLAX 6.0 cm 4.2 - 5.9 / 3.9 - 5.3 cm LV Systolic Diameter PLAX 4.3 cm LV Fractional Shortening PLAX 27.5 % IVS Diastolic Thickness 1.3 cm 0.6 - 1.0 / 0.6 - 0.9 cm LVPW Diastolic Thickness 1.3 cm 0.6 - 1.0 / 0.6 - 0.9 cm RV Internal Dim ED PLAX 2.8 cm Aortic Root Diameter 3.0 cm LA Systolic Diameter LX 4.2 cm 3.0 - 4.0 / 2.7 - 3.8 cm DOPPLER TR Peak Velocity 274.0 cm/s TR Peak Gradient 30.0 mmHg FINDINGS Left Ventricle Mildly dilated left ventricle, with mild concentric hypertrophy. Mild global hypokinesis, estimated left ventricular ejection fraction 45%. Abnormal septal motion due to IVCD. Grade 2 diastolic dysfunction Right Ventricle The right ventricle is normal in size and function. Right Atrium The right atrium is normal in size. Left Atrium Mildly dilated left atrium. Mitral Valve Morphologically normal mitral valve. Mild mitral valve regurgitation. Aortic Valve The aortic valve is trileaflet and has normal motion. Trace aortic valve regurgitation. Tricuspid Valve Morphologically normal tricuspid valve. Trace to mild tricuspid valve regurgitation. Tricuspid regurgitation velocities suggest a PAP of 30 mmHg plus right atrial pressure. Pulmonic Valve Morphologically normal pulmonic valve without significant stenosis. There is no pulmonic regurgitation. Pericardium Normal pericardium without effusion. Aorta Normal ascending aorta dimension. Tom Roka (Electronically Signed) 13 October 2016 Final Date: 19:18
[2016-10-13] MEDS ORDERED: SIMVASTATIN 40 MG TABLET PO SCH (21:00)
== END 2016-10-13 16:46 | disposition home or self-care (01) ==
LOC: N.ED 15:56 → N.EDINP 15:56 → N.TELES 18:28
PROVIDERS: ADMIT Family Medicine; ATTEND Family Medicine

== ENCOUNTER 2017-11-22 21:21 | Inpatient (IN) ==
[2017-11-22] MEDS ORDERED: NITROGLYCERIN 2% OINT 1 INCH/GM PACK TOP STA (22:15)
[2017-11-22] MEDS ORDERED: ONDANSETRON 4 MG/2 ML VIAL IV STA (22:15)
[2017-11-22] MEDS ORDERED: MORPHINE 4 MG/1 ML VIAL IV STA (22:15)
[2017-11-22] MEDS ORDERED: ASPIRIN 325 MG TABLET PO STA (22:15)
[2017-11-22 22:42] LABS: Basophils % 0.7 % (0.0-0.8); Eosinophils % 0.2 % (0.00-10.9); Hemoglobin 14.5 GM/DL (12.0-16.0); Immature Granulocytes % 0.5 %; Immature Granulocytes Absolute 0.02 #; Lymphocytes # 1.5 10*3/uL (1.4-4.0); Lymphocytes % 34.9 % (21.3-54.2); Mean Corpuscular Hemoglobin 32 PG (27-34); Mean Corpuscular Volume 95.9 FL (87-102); Mean Platelet Volume 11.9 FL (9.6-12.0); Monocytes # 0.4 10*3/uL (0.11-0.8); Monocytes % 10.6 % (1.7-12.7); Neutrophils # 2.2 10*3/uL (1.4-7.4); Neutrophils % 53.1 % (38.7-73.9); Platelet Count 124 T/CUMM (130-400); Red Blood Count 4.59 MC/CUMM (3.8-5.5); White Blood Count 4.2 T/CUMM (4-12)
[2017-11-22 22:52] LABS: PT Patient Result 10.4 SECS
[2017-11-22 23:00] LABS: Apearance,Urine CLEAR (Clear); Bilirubin,Urine Negative (Negative); Blood, Urine Moderate mg/dL (Negative); Glucose,Urine (UA) Negative (Negative); Hyaline Casts,Urine 1 /LPF (0-3); Ketones,Urine 5 mg/dL (Negative); Mucus,Urine Occasional /LPF (Occasional); Nitrite,Urine Negative (Negative); Protein,Urine Negative; Squamous Epithelial Cell,Urine Occasional /HPF (0-10); Urine Color Straw (Yellow); Urine Specific Gravity 1.004 (1.001-1.035); Urine Urobilinogen < 2.0 EU/DL (0.2-1.0)
[2017-11-22 23:00] LABS: Alanine Aminotransferase 34 U/L (13-56); Albumin 3.6 G/DL (3.4-5.0); Alkaline Phosphatase 57 U/L (45-117); Aspartate Amino Transferase 40 U/L (0-37); Bilirubin,Total < 0.39 MG/DL (0.2-1.0); Blood Urea Nitrogen 16 MG/DL (7-18); Calcium 8.2 MG/DL (8.5-10.1); Glucose 73 MG/DL (74-106); Osmolality,Calculated 278.4 MOS/KG (273-304); Potassium 3.6 MMOL/L (3.5-5.1); Sodium 140 MMOL/L (136-145); Total Protein 6.6 G/DL (6.4-8.3)
[2017-11-22 23:06] LABS: Barbiturates Screen,Urine Negative (Negative); Benzodiazepines Screen,Urine Negative (Negative); Cannabinoid Screen,Urine Negative (Negative); Opiate Screen,Urine Negative (Negative); Phencyclidine Screen,Urine Negative (Negative)
[2017-11-22] MEDS ORDERED: MAGNESIUM SULF RIDER 2 GM in PREMIX 1 EACH IV STA (23:26)
[2017-11-22] MEDS ORDERED: ENOXAPARIN 100 MG/ML SYRINGE SUBCUT STA (23:27)
[2017-11-23] MEDS ORDERED: ACETAMINOPHEN 325 MG TABLET PO PRN (00:32)
[2017-11-23] MEDS ORDERED: NITROGLYCERIN SL 0.4 MG TABLET SL PRN (00:32)
[2017-11-23] MEDS ORDERED: ONDANSETRON 4 MG/2 ML VIAL IV PRN (00:32)
[2017-11-23] MEDS ORDERED: MORPHINE 4 MG/1 ML VIAL IV PRN (00:32)
[2017-11-23] MEDS ORDERED: ALBUTEROL 2.5 MG/3 ML NEB RESP TX SCH (00:32)
[2017-11-23] MEDS: NITROGLYCERIN 2% OINT 1 INCH/GM PACK TOP SCH ×5 (01:04→17:47)
[2017-11-23 01:23] LABS: Basophils % 0.5 % (0.0-0.8); Eosinophils % 0.5 % (0.00-10.9); Hematocrit 40.7 VOL% (35.7-47.0); Hemoglobin 13.6 GM/DL (12.0-16.0); Immature Granulocytes % 0.5 %; Immature Granulocytes Absolute 0.02 #; Lymphocytes # 1.6 10*3/uL (1.4-4.0); Lymphocytes % 38.7 % (21.3-54.2); Mean Corpuscular HGB Conc 33.4 GM/DL (32-36); Mean Corpuscular Hemoglobin 32 PG (27-34); Mean Platelet Volume 12.3 FL (9.6-12.0); Monocytes # 0.5 10*3/uL (0.11-0.8); Monocytes % 11.1 % (1.7-12.7); Neutrophils % 48.7 % (38.7-73.9); Platelet Count 118 T/CUMM (130-400); Red Blood Count 4.24 MC/CUMM (3.8-5.5); Red Cell Distribution Width 13.9 % (9.3-17.3); White Blood Count 4.2 T/CUMM (4-12)
[2017-11-23 02:02] LABS: Alanine Aminotransferase 33 U/L (13-56); Albumin 3.2 G/DL (3.4-5.0); Alkaline Phosphatase 48 U/L (45-117); Aspartate Amino Transferase 39 U/L (0-37); Bilirubin,Total < 0.39 MG/DL (0.2-1.0); Blood Urea Nitrogen 15 MG/DL (7-18); Calcium 7.9 MG/DL (8.5-10.1); Cholesterol 240 MG/DL (50-200); Glucose 75 MG/DL (74-106); HDL Cholesterol 55 MG/DL (40-60); Osmolality,Calculated 278.4 MOS/KG (273-304); Potassium 3.5 MMOL/L (3.5-5.1); Risk Ratio 4.36; Sodium 140 MMOL/L (136-145); Total Protein 6.2 G/DL (6.4-8.3); Triglycerides 70 MG/DL (2-150)
[2017-11-23] MEDS: SODIUM CHLORIDE 0.9% 1,000 ML IV SCH ×2 (02:06→23:45)
[2017-11-23] MEDS: ALBUTEROL/IPRATROPIUM 3 ML NEB RESP TX SCH ×6 (03:03→23:59)
[2017-11-23] MEDS ORDERED: ASPIRIN EC 325 MG TABLET PO SCH (09:00)
[2017-11-23] MEDS ORDERED: PANTOPRAZOLE 40 MG TABLET PO SCH (09:00)
[2017-11-23] MEDS ORDERED: DOCUSATE SODIUM 100 MG CAPSULE PO SCH (09:00)
[2017-11-23] MEDS: ENOXAPARIN 80 MG/0.8 ML SYRINGE SUBCUT SCH (13:53)
[2017-11-23] MEDS: LINACLOTIDE 145 MCG CAPSULE PO SCH (13:54)
[2017-11-23] MEDS: PANTOPRAZOLE 40 MG TABLET PO SCH (13:55)
[2017-11-23] MEDS: NICOTINE 14 MG/24 HR PATCH TRANSDERM SCH (13:55)
[2017-11-23] MEDS: DOCUSATE SODIUM 100 MG CAPSULE PO SCH ×3 (13:55→22:03)
[2017-11-23] MEDS: FUROSEMIDE 20 MG TABLET PO SCH (13:55)
[2017-11-23] MEDS: ASPIRIN EC 81 MG TABLET PO SCH (13:55)
[2017-11-23] MEDS: CARVEDILOL 12.5 MG TABLET PO SCH ×3 (13:56→22:03)
[2017-11-23] MEDS: SIMVASTATIN 40 MG TABLET PO SCH ×2 (21:24→22:03)
[2017-11-23] MEDS: CYCLOBENZAPRINE 10 MG TABLET PO SCH ×2 (21:24→22:03)
[2017-11-24] MEDS: ENOXAPARIN 80 MG/0.8 ML SYRINGE SUBCUT SCH (00:01)
[2017-11-24] MEDS: NITROGLYCERIN 2% OINT 1 INCH/GM PACK TOP SCH ×2 (00:05→06:26)
[2017-11-24] MEDS: ALBUTEROL/IPRATROPIUM 3 ML NEB RESP TX SCH ×2 (03:00→07:42)
[2017-11-24 08:05] VITALS: BP 136/62
[2017-11-24] MEDS: PANTOPRAZOLE 40 MG TABLET PO SCH (08:52)
[2017-11-24] MEDS: CYCLOBENZAPRINE 10 MG TABLET PO SCH (08:52)
[2017-11-24] MEDS: DOCUSATE SODIUM 100 MG CAPSULE PO SCH ×2 (08:53→08:55)
[2017-11-24] MEDS: LINACLOTIDE 145 MCG CAPSULE PO SCH (08:53)
[2017-11-24] MEDS: FUROSEMIDE 20 MG TABLET PO SCH (08:53)
[2017-11-24] MEDS: NICOTINE 14 MG/24 HR PATCH TRANSDERM SCH (08:53)
[2017-11-24] MEDS: ASPIRIN EC 81 MG TABLET PO SCH (08:53)
[2017-11-24] MEDS: CARVEDILOL 12.5 MG TABLET PO SCH (08:54)
== END 2017-11-24 10:15 | disposition home or self-care (01) | DRG 313 ==
LOC: N.ED 21:21 → N.EDINP 23:28 → N.TELES 23:43
PROVIDERS: ADMIT Family Medicine; ATTEND Family Medicine

== ENCOUNTER 2020-02-05 08:16 | Observation (INO) ==
[2020-02-05] MEDS ORDERED: NITROGLYCERIN 2% OINT 1 INCH/GM PACK TOP STA (08:36)
[2020-02-05] MEDS ORDERED: ASPIRIN 325 MG TABLET PO STA (08:36)
[2020-02-05] MEDS ORDERED: ENOXAPARIN 100 MG/ML SYRINGE SUBCUT STA (08:36)
[2020-02-05 08:54] LABS: Basophils % 0.6 % (0.0-0.8); Eosinophils % 0.4 % (0.00-10.9); Hematocrit 43.8 VOL% (35.7-47.0); Immature Granulocytes % 0.6 %; Immature Granulocytes Absolute 0.03 #; Lymphocytes # 1.5 10*3/uL (1.4-4.0); Lymphocytes % 29.6 % (21.3-54.2); Mean Corpuscular HGB Conc 34.2 GM/DL (32-36); Mean Corpuscular Volume 91.4 FL (87-102); Mean Platelet Volume 12.5 FL (9.6-12.0); Neutrophils % 60.8 % (38.7-73.9); Platelet Count 126 T/CUMM (130-400); Red Blood Count 4.79 MC/CUMM (3.8-5.5); Red Cell Distribution Width 13.6 % (9.3-17.3)
[2020-02-05 09:06] LABS: PT Patient Result 10.6 SECS (9.8-11.9); Partial Thromboplastin Time 28.2 SECS (23.9-33.8)
[2020-02-05 09:19] LABS: Alanine Aminotransferase 20 U/L (13-56); Albumin 3.4 G/DL (3.4-5.0); Alkaline Phosphatase 51 U/L (45-117); Aspartate Amino Transferase 19 U/L (0-37); Bilirubin,Total < 0.39 MG/DL (0.2-1.0); Blood Urea Nitrogen 15 MG/DL (7-18); Calcium 8.7 MG/DL (8.5-10.1); Estimated Glom Filtration Rate 68 ML/MIN; Glucose 95 MG/DL (74-106); Osmolality,Calculated 275.7 MOS/KG (273-304); Total Protein 6.7 G/DL (6.4-8.3)
[2020-02-05] MEDS ORDERED: MAGNESIUM SULF RIDER 2 GM in PREMIX 1 EACH IV PRN ×2 (09:20→10:06)
[2020-02-05] MEDS ORDERED: MAGNESIUM SULF RIDER 4 GM in PREMIX 1 EACH IV PRN (09:20)
[2020-02-05] MEDS ORDERED: SODIUM CHLORIDE 0.9% 1,000 ML IV SCH (09:20)
[2020-02-05] MEDS ORDERED: POTASSIUM CHLORIDE RIDER 10 MEQ in PREMIX 1 EACH IV PRN (10:06)
[2020-02-05] MEDS ORDERED: NITROGLYCERIN SL 0.4 MG TABLET SL PRN (10:59)
[2020-02-05 11:16] VITALS: BP 103/58
[2020-02-05] MEDS ORDERED: LIDOCAINE 1% 20 ML VIAL ONE (11:28)
[2020-02-05] MEDS ORDERED: VERAPAMIL 5 MG/2 ML VIAL ONE (11:28)
[2020-02-05] MEDS ORDERED: HEPARIN/NACL 0.9% 2 UNITS/ML 1,000 ML IV ONE (11:28)
[2020-02-05] MEDS ORDERED: NITROGLYCERIN DRIP 50 MG/250 ML BOTTLE IV ONE (11:28)
[2020-02-05] MEDS ORDERED: DIAZEPAM 5 MG TABLET PO ONE (11:30)
[2020-02-05] MEDS ORDERED: diphenhydrAMINE CAP 25 MG CAPSULE PO ONE (11:30)
[2020-02-05] MEDS ORDERED: MIDAZOLAM 2 MG/2 ML VIAL ONE (11:41)
[2020-02-05] MEDS ORDERED: HYDROmorphone 2 MG/1 ML VIAL ONE (11:41)
[2020-02-05] MEDS ORDERED: ROSUVASTATIN 20 MG TABLET PO SCH (21:00)
[2020-02-05] MEDS ORDERED: carvediloL 6.25 MG TABLET PO SCH (21:00)
[2020-02-06] MEDS ORDERED: NON-FORMULARY MEDICATION (Omeprazole 20 mg Capsule,Delayed Release(Dr/Ec)) PO SCH (09:00)
[2020-02-06] MEDS ORDERED: LOSARTAN 25 MG TABLET PO SCH (09:00)
[2020-02-06] MEDS ORDERED: ASPIRIN 325 MG TABLET PO SCH (09:00)
[2020-02-06] MEDS ORDERED: LINACLOTIDE 290 MCG PO SCH (09:00)
[2020-02-06] MEDS ORDERED: FUROSEMIDE 40 MG TABLET PO SCH (09:00)
[2020-02-06] MEDS ORDERED: SPIRONOLACTONE 25 MG TABLET PO SCH (09:00)
== END 2020-02-05 14:52 | disposition home or self-care (01) ==
LOC: N.ED 08:16 → N.EDINP 08:16
PROVIDERS: ADMIT Internal Medicine Cardiovascular Disease; ATTEND Internal Medicine Cardiovascular Disease
PROC: CLCCHCL (ICD-10-PCS; 2020-02-05 12:45)

== ENCOUNTER 2022-03-19 05:07 | Inpatient (IN) ==
[2022-03-19] MEDS ORDERED: SODIUM CHLORIDE 0.9% 1,000 ML IV STA (05:23)
[2022-03-19 06:02] LABS: Basophils % 0.4 % (0.0-0.8); Eosinophils % 0.2 % (0.00-10.9); Hematocrit 45.2 VOL% (35.7-47.0); Hemoglobin 15.1 GM/DL (12.0-16.0); Immature Granulocytes % 0.7 %; Immature Granulocytes Absolute 0.04 #; Lymphocytes # 0.4 10*3/uL (1.4-4.0); Lymphocytes % 6.9 % (21.3-54.2); Mean Corpuscular HGB Conc 33.4 GM/DL (32-36); Mean Corpuscular Volume 92.1 FL (87-102); Mean Platelet Volume 11.3 FL (9.6-12.0); Monocytes # 0.4 10*3/uL (0.11-0.8); Monocytes % 6.6 % (1.7-12.7); Neutrophils % 85.2 % (38.7-73.9); Platelet Count 82 T/CUMM (130-400); Red Blood Count 4.91 MC/CUMM (3.8-5.5); Red Cell Distribution Width 14.6 % (9.3-17.3); White Blood Count 5.6 T/CUMM (4-12)
[2022-03-19 06:03] LABS: Albumin 3.4 G/DL (3.4-5.0); Bilirubin,Total 0.4 MG/DL (0.20-1.00); Calcium 8.5 MG/DL (8.5-10.1); Osmolality,Calculated 270.1 MOS/KG (273-304); Potassium 3.5 MMOL/L (3.5-5.1); Total Protein 6.7 G/DL (6.4-8.2)
[2022-03-19 06:51] LABS: Bilirubin,Urine Negative (Negative); Blood, Urine Moderate mg/dL (Negative); Glucose,Urine (UA) Negative (Negative); Ketones,Urine Trace mg/dL (Negative); Mucus,Urine Occasional /LPF (Occasional); Nitrite,Urine Negative (Negative); Protein,Urine Negative (Negative); RBC,Urine 6 /HPF (0-4); Squamous Epithelial Cell,Urine Few /HPF (0-10); Urine Appearance Clear (Clear); Urine Color Yellow (Yellow); Urine pH 5.5 (4.5-8.0)
[2022-03-19] MEDS ORDERED: PIPERACILLIN/TAZOBACTAM 3,375 MG in SODIUM CHLORIDE 0.9% 100 ML IV STA (06:51)
[2022-03-19] MEDS: SODIUM CHLORIDE 0.9% 1,000 ML IV SCH ×2 (07:04→18:05)
[2022-03-19] MEDS ORDERED: ONDANSETRON 4 MG/2 ML VIAL IV STA (07:09)
[2022-03-19] MEDS ORDERED: HYDROmorphone 1 MG/1 ML SYRINGE IV STA (07:09)
[2022-03-19 07:57] LABS: Platelet Estimate Decreased
[2022-03-19 07:58] LABS: Macrocytosis Slight
[2022-03-19] MEDS ORDERED: NICOTINE 21 MG/24 HR PATCH TRANSDERM PRN (09:32)
[2022-03-19] MEDS ORDERED: ONDANSETRON 4 MG/2 ML VIAL IV PRN (09:32)
[2022-03-19] MEDS ORDERED: ALBUTEROL/IPRATROPIUM 3 ML NEB RESP TX PRN (09:36)
[2022-03-19] MEDS: metroNIDAZOLE INJ 500 MG/100 ML PREMIX IV SCH ×2 (09:53→17:20)
[2022-03-19] MEDS: LEVOFLOXACIN INJ 750 MG/150 ML PREMIX IV SCH (12:13)
[2022-03-19] MEDS: LACTATED RINGERS 1,000 ML IV SCH ×3 (12:17→21:30)
[2022-03-19] MEDS: DOCUSATE SODIUM 100 MG CAPSULE PO SCH (20:42)
[2022-03-19] MEDS: ACETAMINOPHEN 325 MG TABLET PO PRN (20:42)
[2022-03-19] MEDS: POLYETHYLENE GLYCOL POWDER 17 GM PACK PO SCH (20:42)
[2022-03-20] MEDS: metroNIDAZOLE INJ 500 MG/100 ML PREMIX IV SCH ×3 (02:53→17:14)
[2022-03-20 06:04] LABS: Basophils % 0.3 % (0.0-0.8); Eosinophils % 0.5 % (0.00-10.9); Hematocrit 40.3 VOL% (35.7-47.0); Hemoglobin 13.2 GM/DL (12.0-16.0); Immature Granulocytes % 0.5 %; Immature Granulocytes Absolute 0.02 #; Lymphocytes # 0.6 10*3/uL (1.4-4.0); Lymphocytes % 14.6 % (21.3-54.2); Mean Corpuscular HGB Conc 32.8 GM/DL (32-36); Mean Corpuscular Volume 93.9 FL (87-102); Mean Platelet Volume 11.6 FL (9.6-12.0); Monocytes # 0.5 10*3/uL (0.11-0.8); Monocytes % 11.9 % (1.7-12.7); Neutrophils % 72.2 % (38.7-73.9); Red Blood Count 4.29 MC/CUMM (3.8-5.5); Red Cell Distribution Width 14.6 % (9.3-17.3)
[2022-03-20 06:06] LABS: Platelet Count 63 T/CUMM (130-400)
[2022-03-20 06:23] LABS: Band Neutrophils 1 % (0-10); Lymphocytes 15 % (20-55); Platelet Estimate Decreased; Total Cells Counted 100
[2022-03-20 06:33] LABS: Calcium 8.3 MG/DL (8.5-10.1); Osmolality,Calculated 270.8 MOS/KG (273-304); Potassium 3.6 MMOL/L (3.5-5.1)
[2022-03-20] MEDS: LACTATED RINGERS 1,000 ML IV SCH (07:29)
[2022-03-20] MEDS ORDERED: DOCUSATE SODIUM 100 MG CAPSULE PO SCH (09:00)
[2022-03-20] MEDS ORDERED: FLUTICASONE 50 MCG NASAL SPRAY 16 GM BOTTLE BOTH NARES PRN (09:00)
[2022-03-20] MEDS: DOCUSATE SODIUM 100 MG CAPSULE PO SCH ×2 (09:10→20:06)
[2022-03-20] MEDS: MONTELUKAST 10 MG TABLET PO SCH (09:10)
[2022-03-20] MEDS: PANTOPRAZOLE 40 MG TABLET PO SCH (09:10)
[2022-03-20] MEDS: POLYETHYLENE GLYCOL POWDER 17 GM PACK PO SCH (09:10)
[2022-03-20] MEDS: LINACLOTIDE 145 MCG CAPSULE PO SCH (09:11)
[2022-03-20] MEDS: LEVOFLOXACIN INJ 750 MG/150 ML PREMIX IV SCH (10:37)
[2022-03-20] MEDS: ALBUTEROL 2.5 MG/3 ML NEB RESP TX SCH (10:50)
[2022-03-20] MEDS: MORPHINE 2 MG/1 ML SYRINGE IV PRN (20:05)
[2022-03-20] MEDS: ROSUVASTATIN 20 MG TABLET PO SCH (20:06)
[2022-03-20] MEDS: carvediloL 6.25 MG TABLET PO SCH (20:06)
[2022-03-21] MEDS: ACETAMINOPHEN 325 MG TABLET PO PRN (00:47)
[2022-03-21] MEDS: LACTATED RINGERS 1,000 ML IV SCH ×2 (00:49→08:33)
[2022-03-21] MEDS: metroNIDAZOLE INJ 500 MG/100 ML PREMIX IV SCH ×3 (02:02→17:01)
[2022-03-21 05:56] LABS: Basophils % 0.2 % (0.0-0.8); Eosinophils % 0.2 % (0.00-10.9); Hematocrit 37.2 VOL% (35.7-47.0); Hemoglobin 12.2 GM/DL (12.0-16.0); Immature Granulocytes % 0.6 %; Immature Granulocytes Absolute 0.03 #; Lymphocytes # 0.9 10*3/uL (1.4-4.0); Lymphocytes % 16.8 % (21.3-54.2); Mean Corpuscular HGB Conc 32.8 GM/DL (32-36); Mean Corpuscular Volume 93.5 FL (87-102); Mean Platelet Volume 11.4 FL (9.6-12.0); Monocytes # 0.8 10*3/uL (0.11-0.8); Monocytes % 15.3 % (1.7-12.7); Neutrophils % 66.9 % (38.7-73.9); Platelet Count 69 T/CUMM (130-400); Red Blood Count 3.98 MC/CUMM (3.8-5.5); Red Cell Distribution Width 14.3 % (9.3-17.3); White Blood Count 5.4 T/CUMM (4-12)
[2022-03-21 06:16] LABS: Microcytosis Slight
[2022-03-21 06:17] LABS: Platelet Estimate Decreased
[2022-03-21 06:31] LABS: Calcium 8.1 MG/DL (8.5-10.1); Osmolality,Calculated 270.8 MOS/KG (273-304); Potassium 3.2 MMOL/L (3.5-5.1)
[2022-03-21] MEDS ORDERED: POTASSIUM CHLORIDE 20 MEQ TABLET PO PRN (07:01)
[2022-03-21] MEDS: ALBUTEROL 2.5 MG/3 ML NEB RESP TX SCH (07:40)
[2022-03-21] MEDS: carvediloL 6.25 MG TABLET PO SCH ×2 (08:19→21:10)
[2022-03-21] MEDS: MONTELUKAST 10 MG TABLET PO SCH (08:19)
[2022-03-21] MEDS: FUROSEMIDE 40 MG TABLET PO SCH (08:19)
[2022-03-21] MEDS: ASPIRIN 325 MG TABLET PO SCH (08:19)
[2022-03-21] MEDS: LOSARTAN 25 MG TABLET PO SCH (08:19)
[2022-03-21] MEDS: DOCUSATE SODIUM 100 MG CAPSULE PO SCH ×2 (08:19→21:10)
[2022-03-21] MEDS: PANTOPRAZOLE 40 MG TABLET PO SCH (08:20)
[2022-03-21] MEDS: SPIRONOLACTONE 25 MG TABLET PO SCH (08:20)
[2022-03-21] MEDS: POLYETHYLENE GLYCOL POWDER 17 GM PACK PO SCH (08:20)
[2022-03-21] MEDS: LINACLOTIDE 145 MCG CAPSULE PO SCH (08:21)
[2022-03-21] MEDS: LEVOFLOXACIN INJ 750 MG/150 ML PREMIX IV SCH (11:29)
[2022-03-21] MEDS: ROSUVASTATIN 20 MG TABLET PO SCH (21:10)
[2022-03-22] MEDS: metroNIDAZOLE INJ 500 MG/100 ML PREMIX IV SCH ×2 (03:02→11:17)
[2022-03-22] MEDS: LACTATED RINGERS 1,000 ML IV SCH ×2 (03:03→12:38)
[2022-03-22] MEDS: MORPHINE 2 MG/1 ML SYRINGE IV PRN (03:03)
[2022-03-22 05:50] LABS: Basophils % 0.5 % (0.0-0.8); Eosinophils % 0.5 % (0.00-10.9); Hematocrit 36.9 VOL% (35.7-47.0); Hemoglobin 12.5 GM/DL (12.0-16.0); Immature Granulocytes % 0.7 %; Immature Granulocytes Absolute 0.03 #; Lymphocytes # 0.8 10*3/uL (1.4-4.0); Lymphocytes % 19.4 % (21.3-54.2); Mean Corpuscular HGB Conc 33.9 GM/DL (32-36); Mean Corpuscular Volume 92.3 FL (87-102); Mean Platelet Volume 11.8 FL (9.6-12.0); Monocytes # 0.6 10*3/uL (0.11-0.8); Monocytes % 14.2 % (1.7-12.7); Neutrophils % 64.7 % (38.7-73.9); Platelet Count 79 T/CUMM (130-400); Red Cell Distribution Width 14.3 % (9.3-17.3); White Blood Count 4.1 T/CUMM (4-12)
[2022-03-22 06:11] LABS: Microcytosis Slight
[2022-03-22 06:12] LABS: Platelet Estimate Decreased
[2022-03-22 06:15] LABS: Calcium 8.2 MG/DL (8.5-10.1); Osmolality,Calculated 276.4 MOS/KG (273-304); Potassium 3.3 MMOL/L (3.5-5.1)
[2022-03-22] MEDS: ALBUTEROL 2.5 MG/3 ML NEB RESP TX SCH (06:50)
[2022-03-22] MEDS: POLYETHYLENE GLYCOL POWDER 17 GM PACK PO SCH (08:29)
[2022-03-22] MEDS: ASPIRIN 325 MG TABLET PO SCH (08:29)
[2022-03-22] MEDS: FUROSEMIDE 40 MG TABLET PO SCH (08:30)
[2022-03-22] MEDS: carvediloL 6.25 MG TABLET PO SCH (08:30)
[2022-03-22] MEDS: LINACLOTIDE 145 MCG CAPSULE PO SCH (08:30)
[2022-03-22] MEDS: PANTOPRAZOLE 40 MG TABLET PO SCH (08:30)
[2022-03-22] MEDS: LOSARTAN 25 MG TABLET PO SCH (08:30)
[2022-03-22] MEDS: DOCUSATE SODIUM 100 MG CAPSULE PO SCH (08:30)
[2022-03-22] MEDS: SPIRONOLACTONE 25 MG TABLET PO SCH (08:30)
[2022-03-22] MEDS: MONTELUKAST 10 MG TABLET PO SCH (08:30)
[2022-03-22] MEDS: LEVOFLOXACIN INJ 750 MG/150 ML PREMIX IV SCH (10:12)
[2022-03-22 12:07] VITALS: BP 118/72
== END 2022-03-22 15:51 | disposition home or self-care (01) | DRG 392 ==
LOC: N.ED 05:07 → N.2W 05:07 → SUATTDRO 09:32 → N.2W 11:25 → SUATTDRO 03-21 09:28
PROVIDERS: ADMIT Internal Medicine; ATTEND Emergency Medicine